=== PATIENT | male | born 1975 | race African-American/Black ===

== ENCOUNTER 2019-05-03 17:55 | Emergency (ER) | payer BC ==
[2019-05-03 18:01] VITALS: BP 194/87
[2019-05-03] MEDS ORDERED: SULFAMETHOXAZOLE/TRIMETHOPRIM 800-160 MG TABLET PO ONE (19:41)
[2019-05-03] MEDS ORDERED: HYDROCODONE/ACETAMINOPHEN 5-325 MG (6 TAB/ER DISP) PO PRN (19:41)
[2019-05-03] MEDS ORDERED: CEPHALEXIN 500 MG CAPSULE PO ONE (19:41)
--- NOTE | 2019-05-03 19:43 | ER Document Report ---
HPI - HPI Patient complains to provider of: insect bite Time Seen by Provider: 05/03/19 19:41 Onset: Other - 4 days Onset/Duration: Persistent Quality of pain: Achy Pain Level: 4 Context: Patient complains of insect bite to the left leg that is gotten infected. Patient states that he was able to squeeze purulent drainage from the wound today. Patient denies any fever or history of MRSA. Associated Symptoms: Other - Left lower extremity swelling and tenderness. denies: Fever Exacerbated by: Movement Relieved by: Denies Similar symptoms previously: No Recently seen / treated by doctor: No - ROS ROS below otherwise negative: Yes Systems Reviewed and Negative: Yes All other systems reviewed and negative - CONSTITUTIONAL Constitutional: DENIES: Fever, Chills - GASTROINTESTINAL Gastrointestinal: DENIES: Nausea - MUSCULOSKELETAL Musculoskeletal: REPORTS: Extremity pain, Swelling - DERM Skin Color: Erythema Notes: Insect bite to left leg Past Medical History - General Information source: Patient - Social History Smoking Status: Current Every Day Smoker Smoking Education Provided: Yes Frequency of alcohol use: Occasional Drug Abuse: None Occupation: [employer] Family History: Reviewed & Not Pertinent - Past Medical History Cardiac Medical History: Reports: Hx Hypertension Surgical Hx: Negative Vertical Provider Document - CONSTITUTIONAL Agree With Documented VS: Yes Exam Limitations: No Limitations General Appearance: WD/WN, No Apparent Distress - HEENT HEENT: Atraumatic, Normocephalic - NECK Neck: Normal Inspection, Supple - RESPIRATORY Respiratory: Breath Sounds Normal, No Respiratory Distress - CARDIOVASCULAR Cardiovascular: Regular Rate, Regular Rhythm - BACK Back: Normal Inspection - MUSCULOSKELETAL/EXTREMETIES Musculoskeletal/Extremeties: MAEW, Tender - Tenderness to distal third of left lower extremity, Edema - NEURO Level of Consciousness: Awake, Alert, Appropriate Motor/Sensory: No Motor Deficit - DERM Integumentary: Warm, Dry. negative: Abscess Notes: Patient with erythema surrounding crusted lesion to left lower extremity, no fluctuance, no drainable abscess Course - Re-evaluation Re-evalutation: 05/03/19 19:46 Patient with a history of hypertension and states that he forgot to take his medication today although has his medication at home. Patient denies any fever or history of MRSA. Patient without any drainable abscess to left lower extremity. Will treat for cellulitis at this time. Good return precautions discussed. No concern for sepsis. Patient verbalized understanding and is agreeable with discharge plan of care at this time. - Vital Signs Vital signs: Temp Pulse Resp BP Pulse Ox 97.6 F 84 16 194/87 H 99 05/03/19 18:00 05/03/19 18:00 05/03/19 18:00 05/03/19 18:00 05/03/19 18:00 Discharge - Discharge Clinical Impression: Cellulitis Qualifiers: Site of cellulitis: extremity Site of cellulitis of extremity: lower extremity Laterality: left Qualified Code(s): L03.116 - Cellulitis of left lower limb Condition: Stable Disposition: HOME, SELF-CARE Instructions: Cellulitis ([facility]), Cephalexin ([facility]), Trimethoprim-Sulfa ([facility]) Additional Instructions: Return immediately for any new or worsening symptoms: Increased pain, fever, increased swelling or any concerning new symptoms Followup with your primary care provider, call tomorrow to make a followup appointment Keep leg elevated as much as possible Avoid picking or squeezing on skin lesion Prescriptions: Sulfamethoxazole/Trimethoprim [Bactrim Ds Tablet] 1 each PO BID #20 tablet Cephalexin Monohydrate [Keflex 500 mg Capsule] 500 mg PO Q6H 7 Days capsule Forms: Smoking Cessation Education, Return to Work Referrals: [facility] [Provider Group] - Follow up as needed
== END 2019-05-03 20:00 | disposition home or self-care (01) ==
LOC: ER 17:55
DX: L03.116 Cellulitis of left lower limb (principal); S80.862A Insect bite (nonvenomous), left lower leg, initial encounter; W57.XXXA Bitten or stung by nonvenomous insect and other nonvenomous arthropods, initial encounter; F17.200 Nicotine dependence, unspecified, uncomplicated; I10 Essential (primary) hypertension; Z79.899 Other long term (current) drug therapy
CPT/HCPCS: 99281